=== PATIENT | female | born 1985 | race Caucasian/White ===

== ENCOUNTER 2018-01-18 01:44 | Observation (INO) | payer MEDICAID ==
[~2018-01-18] VITALS: Ht 177.8 cm; Wt 65.9 kg
[2018-01-18 02:17] VITALS: BP 110/65
[2018-01-18 05:42] LABS: AMPHETAMINE SCREEN, URINE Negative (Negative); BARBITURATE SCREEN, URINE Negative (Negative); BENZODIAZEPINE SCREEN, URINE Negative (Negative); CANNABINOID SCREEN, URINE Positive (Negative); COCAINE SCREEN, URINE Negative (Negative); METHADONE SCREEN, URINE Negative (Negative); OPIATE SCREEN, URINE Negative (Negative)
[2018-01-18] MEDS ORDERED: PLEASE ENTER ALLERGIES MC SCH (10:21)
[2018-01-18] MEDS ORDERED: CALCIUM CARBONATE 500 MG TAB.CHEW ONE (10:25)
[2018-01-18] MEDS ORDERED: CALCIUM CARBONATE 500 MG TAB.CHEW PO PRN (10:30)
[2018-01-18] MEDS ORDERED: LORA10CA PO (10:33)
[2018-01-18] MEDS ORDERED: CALC200T3 PO (10:33)
[2018-01-18] MEDS ORDERED: PREN1TAB60 PO (10:33)
[2018-01-18] MEDS ORDERED: CETI10CA PO (10:33)
== END 2018-01-18 11:57 | disposition home or self-care (01) ==
LOC: LDOP 01:44 → LDIP 02:03
PROVIDERS: ADMIT Obstetrics & Gynecology Maternal & Fetal Medicine; ATTEND Obstetrics & Gynecology Maternal & Fetal Medicine
DX: O26.892 Other specified pregnancy related conditions, second trimester (principal); R10.9 Unspecified abdominal pain; O99.332 Smoking (tobacco) complicating pregnancy, second trimester; Z79.899 Other long term (current) drug therapy
CPT/HCPCS: 80307; G0378